=== PATIENT | female | born 1965 | race Caucasian/White ===

== ENCOUNTER 2021-06-29 19:26 | Emergency (ER) | payer BC, SELFPAY ==
[2021-06-29 19:37] VITALS: BP 117/92; PULSE 69; RESP 16; TEMP 36.9; O2SAT 100
--- NOTE | 2021-06-29 19:46 | ED.SKABFB ---
HPI - Skin/Abscess/Foreign Bdy General Chief complaint: Skin/Abscess/Foreign Body Stated complaint: Bee Sting Time Seen by Provider: 06/29/21 19:37 Source: patient and RN notes reviewed Mode of arrival: ambulatory Limitations: no limitations History of Present Illness HPI narrative: Patient presents today complaining of a bee sting to her forehead at 11 AM today. Subsequently she experienced a rash to her abdomen and axilla that resolved after an oatmeal bath. She then began experiencing swelling around her eyes at 1700 this evening. She has been taking 25 mg of Benadryl every 4-6 hours for her symptoms without much relief. Her is a germ drier and she was stung at home. MD complaint: insect bite/sting Related Data Home Medications Medication Instructions Recorded Confirmed cholecalciferol (vitamin D3) 50 50 mcg PO DAILY 05/13/21 05/13/21 mcg (2,000 unit) capsule multivit with 1 tablet PO DAILY 05/13/21 05/13/21 [id number] 8 mg iron-400 mcg-300 mcg tablet venlafaxine 25 mg tablet 25 mg PO DAILY 05/13/21 05/13/21 pravastatin 06/29/21 Allergies Allergy/AdvReac Type Severity Reaction Status Date / Time No Known Allergies Allergy Verified 05/13/21 09:14 Review of Systems Review of Systems: CONSTITUTIONAL: Denies body aches, fever, chills, or sweats. EYES: Denies visual changes, redness, or discharge. ENT: Denies rhinorrhea, congestion, sore throat, or otalgia. Denies swelling of the lips or tongue, scratchiness of the throat. CARDIOVASCULAR: Denies chest pain, palpitations, or edema. RESPIRATORY: Denies cough or dyspnea. GASTROINTESTINAL: Denies abdominal pain, nausea, vomiting, or diarrhea. GENITOURINARY: Denies dysuria or hematuria. SKIN: Bee sting to forehead, swelling around eyes MUSCULOSKELETAL: Denies back pain, joint pain, or myalgia. NEUROLOGIC: Denies headache, numbness, tingling, or weakness. PSYCH: Denies depression or anxiety. PMFSH Past Medical History Medical History Depression Hypercholesteremia Missed x2 Vaginal delivery x2 Surgical History Surgical History History of dilation and curettage x2 Social History Social History Smoking status: Never smoker Alcohol intake: current Drinks per week: 1 Substance use: never Comments At time of signature, I have reviewed and agree with nursing past medical, surgical, social and family history unless otherwise noted. Please see nursing chart for further information. There is no relevant family history pertinent to the presenting complaint Exam Narrative: GENERAL: Well-appearing, well-nourished, and in no acute distress. HEAD: Normocephalic, atraumatic. EYES: EOMI. PERRL. No redness or drainage. Conjunctivae normal. ENT: Mucous membranes pink and moist. NECK: Normal AROM. Supple. No lymphadenopathy. CHEST: No respiratory distress. Clear to auscultation. HEART: Regular rate and rhythm. No murmur appreciated. Normal peripheral pulses. ABDOMEN: Soft, nontender, nondistended, normal active bowel sounds. MUSCULOSKELETAL: No bony tenderness. EXTREMITIES: Normal range of motion. No edema. SKIN: Warm, dry. Capillary refill normal. Normal skin turgor. Moderate edema surrounding both eyes, greater in the lower eyelids, likely from gravity. Patient still can open and close her eyes normally. Insect wound/puncture wound just below the hairline, just right of midline on the forehead. Forehead does not seem too swollen. Remainder of the face is not swollen, to include the lips or tongue. NEURO: No focal deficits. Alert and oriented x3. Gait steady. PSYCH: Normal affect. No signs of depression or anxiety. Course Vital Signs Vital signs: Vital Signs Temperature 98.5 F 06/29/21 19:37 Pulse Rate 69 06/29/21 19:
== END 2021-06-29 19:53 | disposition home or self-care (01) ==
PROVIDERS: Emergency Provider Nurse Practitioner
DX: T63.441A Toxic effect of venom of bees, accidental (unintentional), initial encounter (principal); F32.9 Major depressive disorder, single episode, unspecified; E78.00 Pure hypercholesterolemia, unspecified
CPT/HCPCS: 99213; G0463

== ENCOUNTER 2025-08-26 08:55 | Outpatient (CLI) | payer BC, SELFPAY ==
--- NOTE | ~2025-08-26 | US_ITS ---
Clinical history:Transaminitis. Hepatic cyst EXAM:Ultrasound abdomen limited TECHNIQUE:Multiple static grayscale images and color Doppler images were obtained Comparisons:None available FINDINGS: Multiple liver cysts, the largest measures 2.1 x 2.2 x 2.5 cm. Hepatopedal flow in the portal vein. No gallbladder wall thickening. No gallstones. No Abarca sign according to the nuclear technologist. Common duct measures 5.2 cm. Visualized pancreas is unremarkable. IMPRESSION: 1.Multiple liver cysts, the largest measures 2.1 x 2.2 x 2.5 cm. 2.Otherwise, unremarkable study. If symptoms persist or worsen, consider a short-term follow-up study or additional imaging for further assessment. Reviewed, dictated and finalized at location Q. IMPRESSION: 1.Multiple liver cysts, the largest measures 2.1 x 2.2 x 2.5 cm. 2.Otherwise, unremarkable study. If symptoms persist or worsen, consider a short-term follow-up study or additio nal imaging for further assessment.
== END 2025-08-26 08:56 | disposition home or self-care (01) ==
LOC: MICIMG 08:56
PROVIDERS: PCP Family Medicine; Visit Provider Family Medicine
DX: R74.01 Elevation of levels of liver transaminase levels (principal); K76.89 Other specified diseases of liver
CPT/HCPCS: 76705

== ENCOUNTER 2025-11-03 09:08 | Outpatient (CLI) | payer BC, SELFPAY ==
--- NOTE | ~2025-11-03 | MMUS_ITS ---
EXAMINATION: US breast LT limited, MM diagnostic yoly LT w augustina HISTORY: Follow-up TECHNIQUE: Craniocaudal and mediolateral oblique 3-D tomosynthesis images were obtained and synthetic 2-D images were generated. CAD analysis was submitted and interpreted. Grayscale sonography over the area(s) of interest with color Doppler if there is a finding. COMPARISON: Outside images from April of this year. BREAST PARENCHYMAL COMPOSITION: Not Dense: There are scattered areas of fibroglandular MAMMOGRAM FINDINGS: A small circumscribed mass was seen to persist quite superficially There are no suspicious calcifications. No unexplained architectural distortion is seen. There are no skin or nipple abnormalities identified. There is no adenopathy seen on the images submitted. ULTRASOUND FINDINGS: Sonography to the 9:00 left breast demonstrates a cystic structure which lies entirely in the skin layer. It measures 2 to 3 mm. This accounts for the mammographic finding. IMPRESSION: The structure in question is a skin lesion, likely an epidermoid cyst, not a breast lesion. No mammographic evidence to suggest malignancy is seen. The patient may return to screening mammography as per ACR guidelines. BI-RADS 2 - Benign. Reviewed, dictated and finalized at location C. ATTENDANT IMPRESSION: The structure in question is a skin lesion, likely an epidermoid cyst, not a br east lesion. No mammographic evidence to suggest malignancy is seen. The patien t may return to screening mammography as per ACR guidelines. BI-RADS 2 - Benign.
--- NOTE | ~2025-11-03 | US_ITS ---
US right upper quadrant Indication: Hepatic cyst Comparison: Comparison 08/26/2025. Technique: Campbell-scale and color Doppler images were obtained. Findings: LIVER: Within the liver there are multiple probable simple and complex appearing liver cysts the largest in the right lobe 2.3 x 2.2 cm. . GALLBLADDER/BILIARY: Unremarkable.No cholelithiais, wall thickening or pericholecystic fluid. No biliary dilatation. CBD [address] sign negative. PANCREAS: Unremarkable. Right Kidney: Right kidney 9.7 cm, normal. Impression: 1. Multiple simple and complex appearing liver cysts. Reviewed, dictated and finalized at location P. BURNER Impression: 1. Multiple simple and complex appearing liver cysts.
== END 2025-11-03 09:09 | disposition home or self-care (01) ==
PROVIDERS: PCP Obstetrics & Gynecology; Visit Provider Family Medicine
DX: R92.8 Other abnormal and inconclusive findings on diagnostic imaging of breast (principal); N63.20 Unspecified lump in the left breast, unspecified quadrant; K76.89 Other specified diseases of liver; R74.01 Elevation of levels of liver transaminase levels
CPT/HCPCS: 76642; 76705; 77061; 77065; G0279